=== PATIENT | female | born 1960 | race Caucasian/White ===

== ENCOUNTER 2017-05-28 08:50 | Day surgery (SDC) | payer OTHER ==
[~2017-05-28] VITALS: Ht 165.1 cm; Wt 93.6 kg
[~2017-05-28 08:50] MED LIST: ALEV220T14 PO; ALPR0.25 PO; ESTR1TAB PO; LEVO112T2 PO; MEDR2.5 PO
[2017-05-28] MEDS ORDERED: SODIUM CHLOR 0.9% 1000 ML IV SCH (09:00)
[2017-05-28 09:15] VITALS: BP 135/82; PULSE 79; RESP 20; TEMP 98.7; O2SAT 96
[2017-05-28] MEDS ORDERED: MULT-11 PO (09:16)
[2017-05-28] MEDS ORDERED: ALEV220T14 PO (09:16)
[2017-05-28] MEDS ORDERED: ZOFR4TAB PO (09:16)
[2017-05-28] MEDS ORDERED: PANT20TA2 PO (09:16)
[2017-05-28] MEDS ORDERED: HYDR-2376 PO (09:16)
[2017-05-28] MEDS ORDERED: TRAM50TA PO (09:16)
[2017-05-28] MEDS ORDERED: TYLE325T PO (09:16)
[2017-05-28] MEDS ORDERED: LIDOCAINE 1%/EPINEPHrine 1:100,000 SOLN 20 ML VIAL ONE (10:40)
[2017-05-28] MEDS ORDERED: MIDAZOLAM HCL 2 MG/2 ML VIAL ONE (10:52)
--- NOTE | 2017-05-28 11:33 | PD.RAD ---
Post CT Procedure Prog Note Pre Procedure Diagnosis: (1) Mass of peritoneum Post Procedure Diagnosis: (1) Mass of peritoneum Procedure Date: May 28, 2017 Supervising Radiologist: Gabriel Paz Anesthesia: Conscious Sedation Plan of Activity Patient to Unit: [facility] Patient Condition: Good See PACS Report for procedural detail/treatment Gabriel Paz MD May 28, 2017 11:33
[2017-05-28 11:45] VITALS: BP 117/63; PULSE 76; RESP 20; TEMP 97.6; O2SAT 96
[2017-05-28 12:00] VITALS: BP 114/74; PULSE 73; RESP 20; O2SAT 95
[2017-05-28 12:30] VITALS: BP 92/41; PULSE 87; RESP 20; O2SAT 95
[2017-05-28 13:00] VITALS: BP 116/76; PULSE 80; RESP 20; O2SAT 98
--- NOTE | 2017-05-28 13:04 | RADRPT ---
EXAM DATE/TIME: 05/28/2017 11:05 [facility] COMPARISON: No previous studies available for comparison. INDICATIONS : Peritoneal masses SEDATION TIME: 35 minutes BIOPSY SITE: Left peritoneum MEDICATION(S): 1.) 4 mg midazolam (Versed) IV 2.) 125 mcg fentanyl (Sublimaze) IV DEVICE(S): 1.) 18 gauge Temno core biopsy needle 2.) 17 gauge introducer MEDICAL HISTORY : None. SURGICAL HISTORY : None. ENCOUNTER: Initial ACUITY: 1 day PAIN SCORE: 0/10 LOCATION: abdomen A total of four core specimen(s) were obtained and sent to the laboratory for pathologic evaluation. PROCEDURE: 1. CT guided peritopneal biopsy. 2. Conscious sedation with continuous EKG and oximetry monitoring. 3. EKG and oximetry remained stable throughout the procedure. Prior to the procedure informed consent was obtained. Any appropriate prior imaging studies were rev iewed. Using automated exposure control and adjustment of the mA and/or kV according to patient size, radiat ion dose was kept as low as reasonably achievable to obtain optimal diagnostic quality images. DICOM format image data is available electronically for review and comparison. The site was prepped in a sterile fashion. Full sterile technique was used, including cap, mask, ronda rile gloves and gown and a large sterile sheet. Hand hygiene and 2% chlorhexidine and/or betadine/al cohol prep was utilized per protocol for cutaneous antisepsis. The skin and subcutaneous tissues wer e infiltrated with local anesthetic solution. With CT guidance the previously identified target was localized. Biopsy was performed using the presc ribed needle as above. In total, 4 biopsies were obtained. Adequate hemostasis was obtained with com pression at the puncture site. Follow-up CT scan reveals no hemorrhage. The patient tolerated the procedure well and there were no complications. The patient was returned to the Radiology Outpatient Unit in stable condition. CONCLUSION: Uncomplicated CT guided biopsy. Gabriel Paz MD on May 28, 2017 at 13:01 Board Certified Radiologist. This report was verified electronically.
[2017-05-28 13:30] VITALS: BP 123/77; PULSE 76; RESP 20; O2SAT 99
== END 2017-05-28 14:00 | disposition home or self-care (01) ==
LOC: HRAD 08:50 → HRIP 08:54 → HRAD 14:00
PROVIDERS: ATTEND Obstetrics & Gynecology Gynecologic Oncology
DX: R19.07 Generalized intra-abdominal and pelvic swelling, mass and lump (principal); K66.9 Disorder of peritoneum, unspecified; R18.8 Other ascites
CPT/HCPCS: 49180; 77012; 88305; 88341; 88342; 99152; 99153; J2250; J3010

== ENCOUNTER 2017-06-13 06:10 | Day surgery (SDC) | payer OTHER ==
[~2017-06-13] VITALS: Ht 165.1 cm; Wt 93.2 kg
[~2017-06-13 06:10] MED LIST changes: +HYDR-2376 PO; +MULT-11 PO; +PANT20TA2 PO; +TRAM50TA PO; +TYLE325T PO; +ZOFR4TAB PO
[2017-06-13 06:50] VITALS: BP 132/75; PULSE 89; RESP 20; TEMP 97.7; O2SAT 95
[2017-06-13] MEDS ORDERED: VANCOMYCIN 1000 MG/NS 250 ML - implanted port/tunneled catheter IV SCH ×2 (07:15)
[2017-06-13] MEDS ORDERED: SODIUM CHLORIDE 0.9% 1000 ML IV SCH (07:15)
[2017-06-13] MEDS ORDERED: POVIDONE IODINE 5% (ANTISEPSIS KIT) 4 APPLICATIONS EACH NARE SCH (07:15)
[2017-06-13] MEDS ORDERED: CHLORHEXIDINE GLUCONATE 2 % 1 PACK (2 CLOTHS) TOPICAL SCH (07:15)
[2017-06-13] MEDS: ceFAZolin 2 GM PREMIX 50 ML - implanted port/tunneled catheter insertion IV SCH ×2 (07:26→09:18)
[2017-06-13] MEDS ORDERED: MIDAZOLAM HCL 2 MG/2 ML VIAL ONE (07:50)
[2017-06-13] MEDS ORDERED: LIDOCAINE 1%/EPINEPHrine 1:100,000 SOLN 20 ML VIAL ONE (07:52)
--- NOTE | 2017-06-13 08:50 | PD.RAD ---
Post Procedure Progress Note Pre Procedure Diagnosis: (1) Mass of peritoneum Post Procedure Diagnosis: (1) Mass of peritoneum Procedure Date: Jun 13, 2017 Supervising Radiologist: Gabriel Paz Proceduralist/Assist: RT Sparkle(R), RT Ramy(R) Anesthesia: Conscious Sedation Plan of Activity Patient to Unit: [facility] Patient Condition: Good See PACS Report for procedural detail/treatment Gabriel Paz MD Jun 13, 2017 08:50
[2017-06-13 09:00] VITALS: BP 136/76; PULSE 85; RESP 18; TEMP 98.1; O2SAT 97
[2017-06-13] MEDS ORDERED: SODIUM CHLORIDE 0.9% FLUSH 10 ML FLUSH IVF PRN (09:00)
[2017-06-13 09:15] VITALS: BP 132/55; PULSE 81; RESP 16; O2SAT 96
--- NOTE | 2017-06-13 09:33 | RADRPT ---
EXAM DATE/TIME: 06/13/2017 09:19 [facility] COMPARISON: No previous studies available for comparison. INDICATIONS : Patient presents with ovarian cancer in need of port placement. MEDICAL HISTORY : Anxiety Arthritis Migraine Depression SURGICAL HISTORY : Right Knee SX Tonsillectomy Colonoscopy ENCOUNTER: Initial ACUITY: 1 month PAIN SCORE: 0/10 FLUORO TIME: 0.3 minutes IMAGE SERIES: 1 SEDATION TIME: 30 minutes ACCESS: Right internal jugular vein SEDATION: 1.) 3 mg midazolam (Versed) IV 2.) 150 mcg fentanyl (Sublimaze) IV Prophylactic antibiotics were administered with appropriate pre-procedure timing. Vancomycin within 2 hours of procedure, Ancef (or alternative) within 1 hour of procedure. DEVICE: 1. 8 Uzbek single lumen cm [id number] PROCEDURE : 1. Continuous pulse oximetry and EKG monitoring. 2. Intravenous conscious sedation. 3. Ultrasound guidance for venous access. 4. Fluoroscopic guided implantable central venous port placement. The patient was placed supine. The neck was prepped in sterile fashion. Full sterile technique was u sed, including cap, mask, sterile gloves and gown, and a large sterile sheet. Hand hygiene and 2% ch lorhexidine Betadine was utilized per protocol for cutaneous antisepsis with appropriate dry time for site. Sterile gel and sterile probe cover were utilized for ultrasound guidance. The skin and sub cutaneous tissues were infiltrated with local anesthetic solution. Under direct ultrasound guidance, central venous access was accomplished in the targeted vessel. The ultrasound images depicting access guidance were stored and saved to PACS for permanent record. A s ubcutaneous pocket was created using blunt dissection. The port was introduced to the pocket. The c atheter tubing was fed through a subcutaneous tunnel to the venotomy site. The catheter tubing was c ut to a suitable length and then was introduced through a valved Peel-Away sheath and positioned with catheter tubing tip at the cavo-atrial junction level. The pocket incision was closed with subcutic ular Vicryl suture. Steri-Strips were applied. The port was flushed and locked with heparin solutio n per protocol. Sterile dressing was applied to the site. The patient tolerated the procedure well. Conscious sedation was performed with the prescribed dosages and duration as above in the presence of an independent trained radiology nurse to assist in the monitoring of the patient. EKG and oximetry remained stable throughout the procedure. The patient tolerated the procedure well and there were no complications. The patient was sent to post anesthesia recovery in stable condition. CONCLUSION: Uncomplicated ultrasound and fluoroscopic guided implanted central venous port catheter placement as described in detail above. An 8 Uzbek Power port was placed. Gabriel Paz MD on June 13, 2017 at 9:31 Board Certified Radiologist. This report was verified electronically.
[2017-06-13 09:45] VITALS: BP 131/75; PULSE 80; RESP 18; O2SAT 96
[2017-06-13 10:15] VITALS: BP 127/75; PULSE 79; RESP 18; O2SAT 96
== END 2017-06-13 11:00 | disposition home or self-care (01) ==
LOC: HROP 06:10 → HRIP 06:11 → HROP 11:00
PROVIDERS: ATTEND Obstetrics & Gynecology Gynecologic Oncology
DX: Z45.2 Encounter for adjustment and management of vascular access device (principal); C56.9 Malignant neoplasm of unspecified ovary; F32.9 Major depressive disorder, single episode, unspecified; F41.9 Anxiety disorder, unspecified
CPT/HCPCS: 36561; 76937; 77001; 99152; 99153; C1788; J0690; J2250; J3010; J3370; J7030; J7050; J1642

== ENCOUNTER → 2017-10-04 | Outpatient (CLI) | payer OTHER ==
[~2017-10-04] MED LIST changes: +CLAR10CA3 PO
--- NOTE | 2017-10-04 12:05 | RADRPT ---
EXAM DATE/TIME: 10/04/2017 11:47 [facility] COMPARISON: No previous studies available for comparison. INDICATIONS : Evaluate for pneumonia, pneumothorax, or communicable disease. Pre op for hysterectomy. MEDICAL HISTORY : Arthritis. SURGICAL HISTORY : Tonsillectomy. Right knee. Colonoscopy. ENCOUNTER: Initial ACUITY: 1 day PAIN SCORE: 0/10 LOCATION: chest FINDINGS: PA and lateral views of the chest demonstrate the lungs to be symmetrically aerated without evidence of mass, infiltrate or effusion. The cardiomediastinal contours are unremarkable. Osseous structure s are intact. Right-sided Mougum-q-Ilpm is noted. CONCLUSION: No acute disease. Demond Laura MD on October 04, 2017 at 12:02 Board Certified Radiologist. This report was verified electronically.
--- NOTE | 2017-10-05 11:14 | EKG ---
Date Performed: 10/04/2017 Time Performed: 11:10:09 PTAGE: 57 years EKG: Sinus rhythm LOW QRS VOLTAGE IN PRECORDIAL LEADS BORDERLINE ECG NO PREVIOUS TRACING DOCTOR: Francis Collier Interpretating Date/Time 10/05/2017 11:11:52
== END ==
LOC: CPRE 10:54
PROVIDERS: ATTEND Obstetrics & Gynecology Gynecologic Oncology
DX: Z01.811 Encounter for preprocedural respiratory examination (principal); Z01.810 Encounter for preprocedural cardiovascular examination; C56.9 Malignant neoplasm of unspecified ovary; R94.31 Abnormal electrocardiogram [ECG] [EKG]
CPT/HCPCS: 71046; 93005

== ENCOUNTER 2017-10-15 05:40 | Inpatient (IN) | payer OTHER ==
[~2017-10-15] VITALS: Ht 165.1 cm; Wt 87.0 kg
[~2017-10-15 05:40] MED LIST changes: -ESTR1TAB PO; -LEVO112T2 PO; -MEDR2.5 PO; -TRAM50TA PO; -ZOFR4TAB PO
[2017-10-15] MEDS ORDERED: ACETAMINOPHEN 1000 MG/100 ML 100 ML IV ONE (05:55)
[2017-10-15] MEDS ORDERED: METOPROLOL TARTRATE 25 MG TAB PO PRN (06:15)
[2017-10-15] MEDS ORDERED: POVIDONE IODINE 5% (ANTISEPSIS KIT) 4 APPLICATIONS EACH NARE PRN (06:15)
[2017-10-15] MEDS ORDERED: HEPARIN SODIUM - SQ 10,000 UNITS/ML VIAL SQ SCH (06:15)
[2017-10-15] MEDS ORDERED: CHLORHEXIDINE GLUCONATE 2 % 1 PACK (2 CLOTHS) TOPICAL PRN (06:15)
[2017-10-15] MEDS ORDERED: ceFAZolin 2 GM in NS 100 ML IV SCH (06:15)
[2017-10-15] MEDS ORDERED: LACTATED RINGER'S 1000 ML IV PRN (06:15)
[2017-10-15] MEDS ORDERED: SODIUM CHLORID 0.9% 500 ML IV PRN (06:15)
[2017-10-15] MEDS ORDERED: LIDOCAINE 1%/EPINEPHrine 1:100,000 SOLN 30 ML VIAL ONE (07:29)
[2017-10-15] MEDS ORDERED: METHYLENE BLUE 10 MG/ML VIAL OTHER ONE (09:34)
[2017-10-15] MEDS ORDERED: LIDOCAINE HCL 1% PF 5 ML SYRINGE OTHER ONE (12:00)
[2017-10-15] MEDS ORDERED: ceFAZolin INJ 1,000 MG VIAL IV ONE (12:00)
[2017-10-15] MEDS ORDERED: ONDANSETRON HCL 4 MG/2 ML VIAL IV ONE (12:00)
[2017-10-15] MEDS ORDERED: PHENYLEPH/NS 1000 MCG/10 ML SYR IV ONE (12:00)
[2017-10-15] MEDS ORDERED: DEXAMETHASONE SOD PHOS 4 MG/ML VIAL IV ONE (12:00)
[2017-10-15] MEDS ORDERED: ROCURONIUM INJ 50 MG/5 ML SYRINGE IV PUSH ONE (12:00)
[2017-10-15] MEDS ORDERED: PHENYLEPHRINE HCL 10 MG/ML VIAL IV ONE (12:00)
[2017-10-15] MEDS ORDERED: PROPOFOL 200 MG/20 ML AMP IV ONE (12:00)
[2017-10-15] MEDS ORDERED: VECURONIUM BROMIDE 20 MG VIAL IV ONE (12:00)
[2017-10-15] MEDS ORDERED: LACTATED RINGER'S 1000 ML INJ 2,000 ML IV ONE (12:00)
[2017-10-15] MEDS ORDERED: SODIUM CHLORIDE 0.9% 10 ML VIAL IV ONE (12:00)
[2017-10-15] MEDS ORDERED: ePHEDrine/NS 25 MG/5 ML SYRINGE IV ONE (12:00)
[2017-10-15] MEDS ORDERED: SUGAMMADEX SODIUM 200 MG/2 ML VIAL IV PUSH ONE (12:20)
[2017-10-15] MEDS ORDERED: *ONDANSETRON 4 MG VIAL PERIprocedural Use ONLY ONE (12:56)
[2017-10-15] MEDS ORDERED: DO NOT ADM ANY ANTICOAGULANT DRUGS PRN (12:56)
[2017-10-15] MEDS ORDERED: LORazepam 0.5 MG TAB PO PRN (13:00)
[2017-10-15] MEDS ORDERED: ONDANSETRON HCL 4 MG/2 ML VIAL IVP PRN (13:00)
[2017-10-15] MEDS: KETOROLAC TROMETHAMINE 30 MG/ML (IVP) VIAL IVP SCH ×2 (13:00→18:32)
[2017-10-15] MEDS ORDERED: SODIUM CHLORIDE 0.9% FLUSH 10 ML FLUSH IV FLUSH PRN (13:00)
[2017-10-15] MEDS ORDERED: oxyCODONE/ACETAMINOPHEN 5 MG/325 MG TAB PO PRN (13:00)
[2017-10-15] MEDS: D5-1/2 NS + KCL 20 MEQ INJ 1,000 ML IV SCH ×2 (13:30→21:57)
--- NOTE | 2017-10-15 14:37 | MP ---
cc: Anila Darnell MD, Pamela P MD Doolin, Dina M DATE OF OPERATION: 10/15/2017 PREOPERATIVE DIAGNOSES: 1. Ovarian cancer. 2. Status post neoadjuvant Taxol and carboplatin chemotherapy. POSTOPERATIVE DIAGNOSES: 1. Ovarian cancer. 2. Status post neoadjuvant Taxol and carboplatin chemotherapy. PROCEDURE: Robotic-assisted laparoscopic hysterectomy, bilateral salpingo-oophorectomy (with resection of a 12 cm left ovarian tumor), omentectomy, resection of peritoneal nodules, intraperitoneal washings (cytoreduction for ovarian cancer). SURGEON: Anila Darnell MD ENDLESS BELT FINISHER: Lillie certified first assistant. ANESTHESIA: General endotracheal. ESTIMATED BLOOD LOSS: 400 mL INTRAVENOUS FLUIDS: 3800 mL URINE OUTPUT: 650 mL HISTORY: This is a 57-year-old female presented with ascites, carcinomatosis, elevated CA-125, bilateral adnexal masses, biopsy-confirmed papillary serous tumor. She was treated with 4 cycles of Taxol and carboplatin chemotherapy, neoadjuvant. She had an excellent clinical response and biochemical response to treatment, as ascites essentially resolved, the pelvic tumor reduced, the omental tumor reduced and she was less symptomatic. She has been counseled in the office regarding the potential value of interval cytoreductive surgery and understands that post surgery chemotherapy will be recommended. She was seen in the preop holding area where the findings, steps taken and plan of care again discussed and reviewed. She understands that it is the expectation that there will be active cancer determined at the time of surgery. The surgical objectives are to remove any significant grossly visible tumor. After recovery from surgery, she will need additional chemotherapy, and we recommend a goal of 4 additional cycles. She expressed good understanding and would like to move forward. FINDINGS: Upon entry into the peritoneal cavity, it is clear that she has had a good response to chemotherapy. There is no ascites. The omentum appears to have some small nodules in the omentum that are suggestive of possible small implants of persistent disease, but the thickened grossly abnormal omentum is not present as there has been a good response to chemotherapy. The liver and diaphragm edges are smooth. There are no peritoneal implants. The large and small bowel and adjacent mesentery are inspected and there are essentially no tumor implants, possibly very tiny 1-2 mm rare implants on the bowel wall, not even certain if they are tumor. In the pelvis, the bulk of the persistent disease is manifesting as a persistent left ovarian tumor. It remains approximately 12 cm in size, has minimal adhesions. The right tube and ovary grossly appear normal. The uterus grossly appears normal. All peritoneal surfaces are somewhat thickened suggesting there were likely peritoneal implants that have responded to chemotherapy. A couple of small posterior peritoneal implants are included in the hysterectomy resection. At the completion of the case, essentially any detectable or significant tumor had been either resolved with chemotherapy or surgically resected such that there was no significant measurable tumor that remained at the end of the procedure. DESCRIPTION OF PROCEDURE: She was taken to the operating room and placed in dorsal lithotomy position. After general endotracheal anesthesia was administered, timeout was undertaken. She was identified by site recognition, hospital ID [email or web address], and the proposed procedure was reviewed and confirmed. She was carefully positioned in the padded Alex stirrups. She was padded and secured to the OR table. Her arms were further secured padded to the sides and she was fixed with egg crate padding and tape in a cross chest over the shoulder fashion. All sites noted to be properly aligned with no malalignment or pressure points. She was prepped and draped in sterile fashion, placed in lithotomy position. Cervix grasped. Uterine cavity sounded to 6 cm. A large VCare manipulator inserted and secured in usual fashion. Elaine catheter placed in the bladder. She was returned to low lithotomy position. Change of sterile gloves was undertaken. We confirmed an orogastric tube in the stomach on suctioned. With manual elevation of the abdominal wall and direct laparoscopic visualization, a 5 mm cannula introduced into the left upper abdomen. Carbon dioxide gas was insufflated. There were scant adhesions between the omentum and the anterior abdominal wall that were taken down upon entry to the peritoneal cavity. A 12 mm cannula placed midline above the umbilicus, 8 mm cannula placed in the right upper quadrant and left lateral abdomen, and the original 5 mm cannula exchanged for an 8 mm cannula. Peritoneal washings were obtained for cytology. The anatomy was surveyed with findings as described above. She was placed in steep Trendelenburg position. The small bowel was folded back on its mesenteric root. Three Ray-Rachael sponges were placed around the root of the small bowel mesentery. The robotic system was brought into the operative field after steep Trendelenburg position was secured, attached in the usual fashion. Monopolar scissors, fenestrated bipolar forceps and ProGrasp manipulator were placed in arms #1, 2 and 3 respectively, and I took my place at the surgeon's console. Dissection was started on the left side. Left round ligament isolated, cauterized, transected. The anterior and posterior leaves of the broad ligament were opened. The colon was densely adherent to the left pelvic sidewall at the level of the pelvic brim and this was mobilized somewhat until the left retroperitoneal dissection allowed identification of the left ureter. The intervening peritoneum was opened, the infundibulopelvic ligament was isolated. It was isolated to the level of the pelvic brim. Instruments were exchanged for needle drivers. A 0 Vicryl suture was introduced and 0 Vicryl tie was placed around the infundibulopelvic ligament securely x 2. The knot was tied via instrument tie, and the suture was cut and removed. The distal portion of the infundibulopelvic ligament was cauterized. Posterior peritoneum was opened along the left side of the uterus and cervix, and the left vesicouterine peritoneum was dissected off the lower uterine segment. Cervix and left uterine vessels were skeletonized and cauterized. Attention was directed toward the right side where the right round ligament was isolated, cauterized and transected. The anterior and posterior leafs of the broad ligament were opened. Right ureter was identified. Right infundibulopelvic ligament was isolated and the intervening peritoneum was opened. The infundibulopelvic ligament was isolated to the level of the pelvic brim where it was cauterized and transected. Posterior peritoneum opened along the right side of the uterus and cervix and the right vesicouterine peritoneum was dissected off the lower uterine segment and cervix. The right uterine vessels were isolated, cauterized. Some bleeding was noted at the left pelvic brim. There was some traction on the gonadal vessels. The gonadal vessels were transected where they were cauterized. Suction irrigation allowed identification. There was some stretch and a small rent on the proximal gonadal vessels. Instruments were exchanged for needle drivers as 2-0 Vicryl suture was introduced. A 2-0 Vicryl [id number] suture was placed through the infundibulopelvic ligament through and proximal to the area of bleeding, tied securely, which rendered it hemostatic and the needle was cut and removed. Initial instruments were replaced. The uterus was inspected and noted to be blanched after securing the main blood supply, and the dissection was continued again on the left side where the uterine vessels were transected, as were the cardinal, paracervical and uterosacral ligaments as they were isolated, cauterized and transected in a stepwise fashion. Attention was redirected toward the right side where the right uterine vessels were transected. The cardinal, paracervical and uterosacral ligaments were isolated, cauterized and transected in a stepwise fashion. The posterior peritoneal tumor nodules were removed with sharp dissection or included in the posterior peritoneum with the hysterectomy. Colpotomy was performed, 360 degree incision, the cervix from the upper vagina and the specimen was withdrawn transvaginally, which included uterus, cervix and the attached right tube and ovary. The left adnexal mass had been by transecting the left uteroovarian ligament. A 15 cm EndoCatch bag was introduced. The left ovarian mass was placed in the EndoCatch bag, and this was delivered transvaginally. The pneumo occluder balloon was placed in the vagina to maintain pneumoperitoneum. Grasper was placed in arm 1. The distal edge of the infracolic omentum was grasped, brought down to the pelvis, elevated toward the abdominal wall and held in place with the ProGrasp manipulator. Monopolar scissors were placed in arm 1. Bipolar forceps are in 2. Nonvascular attachments to the transverse colon were taken down with sharp dissection. Vascular attachments were isolated, cauterized and transected starting in the mid portion of the transverse colon and working toward the right, toward the hepatic flexure, detaching the omentum from the colon. The attachment sites all grossly appeared normal. There were some nodules in the mid and distal omentum that were suggestive of a small persistent tumor. Dissection was continued from the mid portion of the omentum toward the splenic flexure. Again, nonvascular attachments were taken down with sharp dissection. Vascular attachments were isolated, cauterized and transected. The omentum was very voluminous, quite large and dissection was continued toward the splenic flexure in a stepwise fashion until all of the infracolic omentum that could be safely removed had been removed, and the transection site was inspected and noted to be hemostatic. A ring forceps was introduced transvaginally and the omentum was worked out and delivered transvaginally, and the pneumo occluder balloon was replaced. Instruments 1 and 3 exchanged for needle cdl team truck driver as a 0 Vicryl suture was introduced. The vaginal cuff was closed with [id number] 0 Vicryl sutures, starting at the corners, full-thickness closure including the posterior peritoneum and edge of the uterosacral ligament, tied via instrument tie. This closure was continued across the entire vaginal cuff, tying via instrument tie, and once new sutures were required, the needle was cut and removed. This closure continued until complete hemostasis, good anatomical support. All needles had been removed. To check the integrity of the bladder, the bladder was filled with saline dyed with methylene blue. There was a good margin between the bladder edge and the vaginal cuff suture line. There was good peristalsis of ureters bilaterally. The bladder distended nicely under pressure. There were no defects in the bladder. No thin areas in the bladder. The bladder wall was intact and the bladder was drained. Pelvis and abdomen were thoroughly irrigated. Small bleeders were made hemostatic with bipolar cautery. Left pelvic brim was inspected. All sites noted to be hemostatic. Inspection confirmed there was no detectable tumor that remained, and the visible and palpable inspection of the pelvic and periaortic lymph node regions showed no abnormal lymph nodes, no enlarged lymph nodes. It was felt that all reasonable surgical objectives in this individual had been completed. Robotic instruments were removed and robotic system was disengaged from the operative field. I reentered the bedside under sterile condition. Each of the 3 Ray-Rachael sponges that were in the peritoneal cavity were removed individually. Each were inspected and noted to be removed in their entirety. Visual inspection confirmed there were no remaining foreign objects in the peritoneal cavity other than some hemostatic Surgicel that had been placed across the left pelvic sidewall at the level of the left pelvic brim and attention was directed toward closing. The 12 mm fascial defect was closed with 0 Vicryl interrupted sutures using a fascia closure apparatus. The 0 Vicryl sutures were tied securely, which rendered the fascia completely airtight and hemostatic. The remaining cannulas were withdrawn, carbon dioxide gas was removed, 3-0 Vicryl subcutaneous, 3-0 Vicryl subcuticular and Steri-Strips were used to close these incisions. She was returned to dorsal lithotomy position. Exam confirmed the vaginal cuff well supported, hemostatic. No remaining foreign objects in the vagina. No vaginal lacerations. Final counts were correct. She was returned to dorsal supine position and was pending reversal of anesthesia when I left the operating room to precede her to the postanesthesia care unit. MD BECCA Miranda/LLUVIA , 01:32 PM , 02:35 PM
[2017-10-15] MEDS ORDERED: *morphine SULFATE 4 MG/ML PERIprocedure ONLY ONE (14:52)
--- NOTE | 2017-10-15 16:22 | PD.ONC.PN ---
Subjective Subjective Remarks planning manager/onc post op note pt seen in PACU awaiting a bed no complaints and pain controlled Objective Data Date Time Temp Pulse Resp B/P (MAP) Pulse Ox O2 Delivery O2 Flow Rate FiO2 10/15/17 12:54 97.6 94 18 104/60 (75) 97 Nasal Cannula 2 10/15/17 06:28 98.0 74 18 121/70 (87) 99 10/15/17 10/15/17 10/15/17 07:00 15:00 23:00 Intake Total 3800 ml Output Total 1050 ml Balance 2750 ml Administered Medications Medications (Trade) Dose Ordered Sig/Abi Route PRN Reason Start Time Stop Time Status Last Admin Dose Admin Lactated Ringer's 1,000 ml @ 30 mls/hr Q24H PRN IV SEE LABEL COMMENTS 10/15/17 06:15 10/18/17 06:14 10/15/17 06:36 Povidone Iodine (Betadine 5% Antisepsis Kit) 1 applic METER READING CLERK PRN EACH NARE SEE LABEL COMMENTS 10/15/17 06:15 10/18/17 06:14 10/15/17 06:36 Chlorhexidine Gluconate (Chlorhexidine 2% Cloth) 3 pack METER READING CLERK PRN TOPICAL SEE LABEL COMMENTS 10/15/17 06:15 10/18/17 06:14 10/15/17 06:36 Cefazolin Sodium 2000 mg/Sodium Chloride 100 ml @ 200 mls/hr METER READING CLERK IV 10/15/17 06:15 10/18/17 06:14 10/15/17 06:47 Heparin Sodium (Porcine) (Heparin Inj) 5,000 units METER READING CLERK SQ 10/15/17 06:15 10/16/17 06:14 10/15/17 06:40 Potassium Chloride/Dextrose/ Sod Cl 1,000 ml @ 100 mls/hr Q10H IV 10/15/17 13:30 10/15/17 13:30 Ketorolac Tromethamine (Toradol Inj) 30 mg Q6H IVP 10/15/17 13:00 10/16/17 07:01 10/15/17 13:00 Objective Remarks GENERAL: Well-nourished, well-developed patient. SKIN: Warm and dry. HEAD: Normocephalic. EYES: No scleral icterus. No injection or drainage.mild facial swelling CARDIOVASCULAR: Regular rate and rhythm without murmurs. RESPIRATORY: Breath sounds equal bilaterally. No accessory muscle use. GASTROINTESTINAL: SS are c/d/i without drainage EXTREMITIES:teds and scds MUSCULOSKELETAL: Adequate muscle tone. NEUROLOGICAL: No obvious focal deficit. Awake, alert, and oriented x3. PSYCHIATRIC: Appropriate mood and affect; insight and judgment normal. Assessment/Plan Problem List: (1) Ovarian cancer, bilateral ICD Codes: C56.1 - Malignant neoplasm of right ovary; C56.2 - Malignant neoplasm of left ovary Plan: s/p RA lap hyst with BSO and debulking post op orders in chart Toradol and Percocet for pain ADAT OOB to chair IS to bedside cbc w/ plts ordered please call results to Dr. Darnell anticipate discharge tomorrow Patria Mccarthy Oct 15, 2017 16:22
[2017-10-15 17:16] LABS: HEMATOCRIT 36.6 % (35.0-46.0); HEMOGLOBIN 12.4 GM/DL (11.6-15.3); MEAN CELL VOLUME 99.6 FL (80.0-100.0); MEAN CORPUSCULAR HEMOGLOBIN 33.8 PG (27.0-34.0); MEAN CORPUSCULAR HGB CONC 33.9 % (32.0-36.0); MEAN PLATELET VOLUME 6.8 FL (7.0-11.0); PLATELET COUNT 259 TH/MM3 (150-450); RED BLOOD COUNT 3.67 MIL/MM3 (4.00-5.30); RED CELL DISTRIBUTION WIDTH 15.3 % (11.6-17.2); WHITE BLOOD COUNT 15.4 TH/MM3 (4.0-11.0)
[2017-10-15 17:22] VITALS: BP 119/76; PULSE 85; RESP 18; TEMP 98.7; O2SAT 98
[2017-10-15] MEDS: oxyCODONE/ACETAMINOPHEN 5 MG/325 MG TAB PO PRN (21:56)
[2017-10-15] MEDS: SODIUM CHLORIDE 0.9% FLUSH 10 ML FLUSH IV FLUSH SCH (21:57)
[2017-10-16] MEDS: KETOROLAC TROMETHAMINE 30 MG/ML (IVP) VIAL IVP SCH ×2 (00:32→08:22)
[2017-10-16 00:36] VITALS: BP 118/68; PULSE 78; RESP 18; TEMP 98.1; O2SAT 96
[2017-10-16 04:40] VITALS: BP 105/64; PULSE 78; RESP 17; TEMP 98.6; O2SAT 97
[2017-10-16 06:46] LABS: AUTOMATED NEUTROPHIL # 10.1 TH/MM3 (1.8-7.7); BASOPHIL % 0.2 % (0.0-2.0); EOSINOPHIL % 0.1 % (0.0-4.0); HEMATOCRIT 31.6 % (35.0-46.0); HEMOGLOBIN 11.1 GM/DL (11.6-15.3); LYMPH % 13.8 % (9.0-44.0); LYMPHOCYTE # 1.8 TH/MM3 (1.0-4.8); MEAN CELL VOLUME 97.6 FL (80.0-100.0); MEAN CORPUSCULAR HEMOGLOBIN 34.2 PG (27.0-34.0); MEAN PLATELET VOLUME 6.4 FL (7.0-11.0); MONO % 7.6 % (0.0-8.0); NEUT % 78.3 % (16.0-70.0); PLATELET COUNT 225 TH/MM3 (150-450); RED BLOOD COUNT 3.24 MIL/MM3 (4.00-5.30); RED CELL DISTRIBUTION WIDTH 14.8 % (11.6-17.2); WHITE BLOOD COUNT 12.9 TH/MM3 (4.0-11.0)
[2017-10-16] MEDS ORDERED: HYDR-2376 PO (06:49)
[2017-10-16 07:07] LABS: CALCIUM 7.8 MG/DL (8.5-10.1); CREATININE 0.75 MG/DL (0.50-1.00)
[2017-10-16] MEDS: SODIUM CHLORIDE 0.9% FLUSH 10 ML FLUSH IV FLUSH SCH (07:30)
--- NOTE | 2017-10-16 07:31 | MD ---
cc: Anila Darnell MD,Fauzia Bryant,Thu Paige MD DATE OF DISCHARGE: 10/16/2017 PROCEDURE: 10/15/2017, robotic-assisted laparoscopic hysterectomy, bilateral salpingo-oophorectomy (resection of a 12 cm ovarian tumor), omentectomy, tumor debulking for ovarian cancer. HOSPITAL COURSE: Did well in the early postoperative period. Remained hemodynamically stable. Tolerating oral intake. Elaine catheter removed pending voiding. Ins and outs 4917/1900. H and H yesterday afternoon 12.4 and 36.6. Morning labs pending. PHYSICAL EXAM: VITAL SIGNS: Afebrile, pulse 78-85, respirations 17-18, blood pressure 105-119/62-76, O2 saturations greater than or equal to 95%. LUNGS: Clear except for basilar rales. CARDIOVASCULAR: Regular rate and rhythm. ABDOMEN: Soft. Incision clean and dry. GYNECOLOGIC: No bleeding. EXTREMITIES: Nontender. ASSESSMENT: Postoperative day #1, doing well in early postoperative period. Findings, steps taken at surgery, response to chemotherapy thus far, activities and restrictions all discussed and reviewed. Questions were asked and answered. PLAN: I anticipate she will meet criteria for discharge to home as the day progresses. She has our office number and she is to contact our office to ensure she has a followup in 2 weeks. She is to resume her prior medications. She will have a prescription for Percocet for pain as needed, and she is to contact our office should she have any questions or problems between now and the time of scheduled followup. Copies note Dr. Fauzia Wall primary care medicine, Dr. Lani Moreira PATIENT ACCESS DIRECTOR. MD BECCA Miranda/ZAINAB , 06:53 AM , 07:29 AM
[2017-10-16 08:17] VITALS: BP 124/76; PULSE 82; RESP 18; TEMP 98.1; O2SAT 98
[2017-10-16] MEDS: oxyCODONE/ACETAMINOPHEN 5 MG/325 MG TAB PO PRN (08:32)
[2017-10-16] MEDS ORDERED: PANTOPRAZOLE SOD 20 MG DELAYED RELEASE TAB PO SCH (09:00)
[2017-10-16] MEDS ORDERED: LORATADINE 10 MG TAB PO SCH (09:00)
[2017-10-16] MEDS: D5-1/2 NS + KCL 20 MEQ INJ 1,000 ML IV SCH (09:30)
== END 2017-10-16 12:02 | disposition home or self-care (01) | DRG 737 ==
LOC: HSDI 05:40 → HCIN 16:53
PROVIDERS: ADMIT Obstetrics & Gynecology Gynecologic Oncology; ATTEND Obstetrics & Gynecology Gynecologic Oncology
PROC: 0UT24ZZ Resection of Bilateral Ovaries, Percutaneous Endoscopic Approach (ICD-10-PCS; 2017-10-15)
PROC: 0DBU4ZZ Excision of Omentum, Percutaneous Endoscopic Approach (ICD-10-PCS; 2017-10-15)
PROC: 0UT74ZZ Resection of Bilateral Fallopian Tubes, Percutaneous Endoscopic Approach (ICD-10-PCS; 2017-10-15)
PROC: 0UT94ZZ Resection of Uterus, Percutaneous Endoscopic Approach (ICD-10-PCS; 2017-10-15)
PROC: 0DBW4ZZ Excision of Peritoneum, Percutaneous Endoscopic Approach (ICD-10-PCS; 2017-10-15)
PROC: 3E1M38X Irrigation of Peritoneal Cavity using Irrigating Substance, Percutaneous Approach, Diagnostic (ICD-10-PCS; 2017-10-15)
PROC: 8E0W4CZ Robotic Assisted Procedure of Trunk Region, Percutaneous Endoscopic Approach (ICD-10-PCS; principal; 2017-10-15 07:18)
DX: C56.2 Malignant neoplasm of left ovary (principal); C78.6 Secondary malignant neoplasm of retroperitoneum and peritoneum; Z92.21 Personal history of antineoplastic chemotherapy
CPT/HCPCS: 80048; 85025; 85027; 86850; 86900; 86901; 88112; 88305; 88307; 88331; J0131; J0690; J1100; J1644; J1885; J2270; J2370; J2405; J3010; J3480; J7120